=== PATIENT | male | born 1970 | race Caucasian/White ===

== ENCOUNTER 2016-12-26 22:26 | Emergency (ER) | payer OTHER ==
[~2016-12-26] VITALS: Ht 180.3 cm; Wt 81.6 kg
[2016-12-26] MEDS ORDERED: NKM (22:37)
[2016-12-26 22:40] VITALS: BP 113/75
[2016-12-26] MEDS ORDERED: Norco 5mg/325mg tab ORAL ONE (23:00)
[2016-12-26] MEDS ORDERED: HYDROCODON-ACE1 EA15 ORAL (23:54)
--- NOTE | 2016-12-26 23:54 | Emergency Room Report ---
History of Present Illness General Chief Complaint: Multiple Trauma/Fall Source: Patient Present Illness HPI Is a 46-year-old male with no past medical history. He presents with chief complaint of left rib pain and left foot pain. He was at the [employer] yesterday. He had alcohol and was sliding down the railing. He fell and hit his left back on the step. Complaining of severe pain. 10 out of 10. Worse with coughing. Worse with movement. No loss of consciousness. No fever or chills. Allergies: Coded Allergies: No Known Allergies (Unverified , 12/26/16) Patient History Past Medical History: see triage record, old chart reviewed Past Surgical History: other Pertinent Family History: none Social History: Reports: alcohol use - social Immunizations: other Reviewed Nursing Documentation: PMH: Agreed, PSxH: Agreed Nursing Documentation-PMH Past Medical History: No Stated History Review of Systems Eye: Denies: eye pain, blurred vision ENT: Denies: ear pain, nose congestion, throat swelling Respiratory: Reports: cough, Denies: shortness of breath Cardiovascular: Reports: chest pain, Denies: palpitations Gastrointestinal: Denies: abdominal pain, diarrhea, nausea, vomiting Musculoskeletal: Denies: back pain, joint pain Skin: Denies: rash Neurological: Denies: headache, numbness Endocrine: Denies: increased thirst, increased urine Hematologic/Lymphatic: Denies: easy bruising All Other Systems: negative except mentioned in HPI Physical Exam Vital Signs Date Time Temp Pulse Resp B/P (MAP) Pulse Ox O2 Delivery O2 Flow Rate FiO2 12/26/16 22:31 98.1 97 16 113/75 97 Room Air vitals normal Sp02 EP Interpretation: reviewed, normal General Appearance: well appearing, no apparent distress, alert Head: normocephalic, atraumatic Eyes: bilateral eye PERRL, bilateral eye EOMI ENT: hearing grossly normal, normal pharynx Neck: full range of motion, supple, no meningismus Respiratory: lungs clear, normal breath sounds, other - Left rib tenderness posteriorly along the seventh rib or so Cardiovascular #1: regular rate, rhythm, no murmur Gastrointestinal: normal bowel sounds, non tender, no mass, no organomegaly, no bruit, non-distended Musculoskeletal: back normal, gait/station normal, normal range of motion, other - Edema and tenderness over the fifth metatarsal bone of the left foot Neurologic: alert, oriented x3 Psychiatric: mood/affect normal Skin: warm/dry Medical Decision Making Diagnostic Impression: Primary Impression: Left rib fracture Qualified Codes: S22.32XA - Fracture of one rib, left side, initial encounter for closed fracture Additional Impression: Sprain of foot, left Qualified Codes: S93.602A - Unspecified sprain of left foot, initial encounter ER Course Patient presents with a fall and rib fracture. Likely no foot fracture. No evidence of pneumothorax. We'll discharge him. Chest X-Ray Diagnostic Results Chest X-Ray Diagnostic Results : Chest X-Ray Ordered: Yes # of Views/Limited/Complete: Complete Indication: Chest Pain EP Interpretation: Yes Interpretation: no consolidation, no effusion, no pneumothorax, other - rib frx Impression: Other - Seventh rib fracture Electronically Signed by: Electronically signed by Guille Pérez MD Other X-Ray Diagnostic Results Other X-Ray Diagnostic Results : X-Ray ordered: left foot xrays # of Views/Limited Vs Complete: 3 View Indication: Pain EP Interpretation: Yes Interpretation: no dislocation, no soft tissue swelling, no fractures Impression: No acute disease Electronically Signed by: Electronically signed by Guille Pérez MD Last Vital Signs Date Time Temp Pulse Resp B/P (MAP) Pulse Ox O2 Delivery O2 Flow Rate FiO2 12/26/16 22:40 98.1 74 20 113/75 97 Room Air Status: improved Disposition: HOME, SELF-CARE Condition: Stable Scripts Hydrocodone/Acetaminophen 5-325* (HYDROCODONE/ACETAMINOPHEN 5-325*) 1 Each Tablet 1 TAB ORAL Q6H Y for For Pain, #30 TAB 0 Refills Prov: GUILLE PÉREZ M.D. 12/26/16 Referrals: [facility]/,REFERRING (PCP) Additional Instructions: Followup with your DrSaad in 7 days. Return if symptom worsen. GUILLE PÉREZ M.D. Dec 26, 2016 23:54
[2016-12-26 23:57] VITALS: BP 118/75
--- NOTE | 2016-12-27 11:20 | Diagnostic Imaging Report ---
Indication: TRAUMA, status post fall Technique: One view of the chest, multiple views of the left ribs Comparison: none Findings: There is a nondisplaced fracture of the left posterior lateral seventh rib. No pneumothorax. No other acute fractures demonstrated. The lungs and pleural spaces are clear. Heart size is normal Impression: Positive for left posterolateral seventh rib fracture. No pneumothorax No acute cardiopulmonary process This agrees with the preliminary interpretation provided by the emergency room physician
--- NOTE | 2016-12-27 11:21 | Diagnostic Imaging Report ---
Indication: TRAUMA, pain, status post fall Technique: 3 views left foot Comparison: none Findings: No acute fractures. No dislocations. Joint spaces are preserved Impression: Negative
== END 2016-12-27 00:02 | disposition home or self-care (01) ==
LOC: EMR 22:39
DX: S22.32XA Fracture of one rib, left side, initial encounter for closed fracture (principal); S93.602A Unspecified sprain of left foot, initial encounter; X58.XXXA Exposure to other specified factors, initial encounter; Y93.9 Activity, unspecified; Y99.9 Unspecified external cause status; M79.672 Pain in left foot; R05 Cough
CPT/HCPCS: 99284